=== PATIENT | female | born 1990 | race Two or more races ===

== ENCOUNTER 2017-11-07 15:01 | Inpatient (IN) | payer OTHER ==
[~2017-11-07] VITALS: Ht 157.5 cm; Wt 60.9 kg
[2017-11-07] MEDS: LACTATED RINGERS 1,000 ML IV SCH (02:45)
[2017-11-07] MEDS ORDERED: PREN1TAB69 PO (15:08)
[2017-11-07 15:18] VITALS: BP 129/61
[2017-11-07] MEDS ORDERED: OXYTOCIN 30U/ 0.9% NaCL 500ML 500 ML IV PRN (17:09)
[2017-11-07] MEDS ORDERED: D5%-LACTATED RINGERS 1,000 ML IV SCH (17:09)
[2017-11-07] MEDS ORDERED: OXYTOCIN 30U/ 0.9% NaCL 500ML 500 ML IV ONE (17:09)
[2017-11-07] MEDS ORDERED: MISOPROSTOL 200 MCG TABLET ONE (17:26)
[2017-11-07] MEDS ORDERED: LIDOCAINE/PF 1%, 30ML ONE (17:26)
[2017-11-07] MEDS ORDERED: OXYTOCIN 30U/ 0.9% NaCL 500ML 500 ML ONE (17:26)
[2017-11-07] MEDS ORDERED: NEWBORN KIT ONE (17:26)
[2017-11-07] MEDS ORDERED: CALCIUM CARBONATE 500 MG TAB.CHEW PO PRN (17:30)
[2017-11-07] MEDS ORDERED: ONDANSETRON 2MG/ML, 2ML IVPush PRN (17:30)
[2017-11-07] MEDS ORDERED: FENTANYL PF 100 MCG/2ML IVPush PRN (17:30)
[2017-11-07] MEDS ORDERED: FENTANYL PF 100 MCG/2ML IV PRN (17:30)
[2017-11-07 18:01] LABS: BASOPHILS # (AUTO) 0.08 x10^3/uL (0-0.1); BASOPHILS % (AUTO) 1 % (0-1); EOSINOPHILS # (AUTO) 0.19 x10^3/uL (0-0.4); EOSINOPHILS % (AUTO) 2 % (1-7); LYMPHOCYTES # (AUTO) 2.42 x10^3/uL (1-3.4); LYMPHOCYTES % (AUTO) 23 % (22-44); MD NO; MEAN CORPUSCULAR HEMOGLOBIN 30.5 pg (27.0-34.8); MEAN CORPUSCULAR HGB CONC 34.1 g/dL (32.4-35.8); MEAN CORPUSCULAR VOLUME 89.6 fL (80-100); MEAN PLATELET VOLUME 9.5 fL (7.4-10.4); MONOCYTES % (AUTO) 7 % (2-9); NEUTROPHILS # (AUTO) 7.22 x10^3/uL (1.8-6.8); NEUTROPHILS % (AUTO) 68 % (42-75); PLATELET COUNT 270 x10^3/uL (130-400); RED BLOOD COUNT 4.43 x10^6/uL (3.82-5.3); RED CELL DISTRIBUTION WIDTH 14.1 % (9.6-15.2)
[2017-11-08] MEDS ORDERED: FENTANYL PF 100 MCG/2ML ONE (02:25)
[2017-11-08] MEDS ORDERED: ONDANSETRON ODT 8 MG ONE (04:06)
[2017-11-08] MEDS ORDERED: ONDANSETRON ODT 8 MG PO ONE (04:30)
[2017-11-08] MEDS ORDERED: OXYTOCIN 30U/ 0.9% NaCL 500ML 500 ML ONE (04:48)
[2017-11-08] MEDS ORDERED: FENTANYL/BUPIV./NS/PF 250 ML EPIDCONT SCH ×2 (09:22→10:16)
[2017-11-08] MEDS: LACTATED RINGERS 1,000 ML IV SCH ×2 (09:44→11:12)
[2017-11-08] MEDS ORDERED: FENTANYL PF 500 MCG, BUPIVACAINE/PF 0.5%, 30ML 62.5 ML in SODIUM CHLORIDE 0.9% 177.5 ML EPIDCONT SCH (10:00)
[2017-11-08] MEDS ORDERED: LACTATED RINGERS 1,000 ML IV SCH (10:16)
[2017-11-08] MEDS ORDERED: BUPIVACAINE 0.25% ONE ×2 (10:18→10:19)
[2017-11-08] MEDS ORDERED: FENTANYL/BUPIV./NS/PF 250 ML EPIDCONT ONE (10:19)
[2017-11-08] MEDS ORDERED: NALOXONE 0.4 MG/ML, 1ML IVPush PRN (10:30)
[2017-11-08] MEDS ORDERED: LACTATED RINGERS 1,000 ML IVBOLUS PRN (10:30)
[2017-11-08] MEDS ORDERED: EPHEDRINE 50 MG/ML, 1ML IVPush PRN (10:30)
[2017-11-08] MEDS: OXYTOCIN 30U/ 0.9% NaCL 500ML 500 ML IV SCH (14:05)
[2017-11-08] MEDS ORDERED: ACETAMINOPHEN 325 MG TABLET PO PRN (14:30)
[2017-11-08] MEDS ORDERED: DOCUSATE 100 MG CAPSULE PO PRN (14:30)
[2017-11-08] MEDS ORDERED: IBUPROFEN 600 MG TABLET PO PRN (14:30)
[2017-11-08] MEDS ORDERED: MISOPROSTOL 200 MCG TABLET PR PRN (14:30)
[2017-11-08] MEDS ORDERED: METHYLERGONOVINE 0.2 MG/ML IM PRN (14:30)
[2017-11-08] MEDS ORDERED: HYDROcodone/APAP 5/325 TABLET PO PRN ×2 (14:30)
[2017-11-08] MEDS ORDERED: IBUPROFEN 600 MG TABLET ONE (15:02)
[2017-11-08 16:50] VITALS: BP 115/68
[2017-11-08 19:21] VITALS: BP 108/64
[2017-11-08 21:32] LABS: BASOPHILS # (AUTO) 0.03 x10^3/uL (0-0.1); BASOPHILS % (AUTO) 0 % (0-1); EOSINOPHILS # (AUTO) 0.04 x10^3/uL (0-0.4); EOSINOPHILS % (AUTO) 0 % (1-7); LYMPHOCYTES # (AUTO) 2.12 x10^3/uL (1-3.4); LYMPHOCYTES % (AUTO) 14 % (22-44); MD NO; MEAN CORPUSCULAR HEMOGLOBIN 30.5 pg (27.0-34.8); MEAN CORPUSCULAR HGB CONC 34.1 g/dL (32.4-35.8); MEAN CORPUSCULAR VOLUME 89.7 fL (80-100); MEAN PLATELET VOLUME 8.7 fL (7.4-10.4); MONOCYTES # (AUTO) 1.23 x10^3/uL (0.2-0.8); MONOCYTES % (AUTO) 8 % (2-9); NEUTROPHILS # (AUTO) 11.66 x10^3/uL (1.8-6.8); NEUTROPHILS % (AUTO) 77 % (42-75); PLATELET COUNT 233 x10^3/uL (130-400); RED BLOOD COUNT 3.53 x10^6/uL (3.82-5.3); RED CELL DISTRIBUTION WIDTH 13.3 % (9.6-15.2)
[2017-11-08 23:44] VITALS: BP 109/68
[2017-11-09] MEDS: OXYTOCIN 30U/ 0.9% NaCL 500ML 500 ML IV SCH ×2 (00:05→10:05)
[2017-11-09 05:17] VITALS: BP 106/67
[2017-11-09 07:28] VITALS: BP 94/53
[2017-11-09] MEDS ORDERED: PRENATAL VIT/IRON/FA 1 EACH TABLET PO SCH (09:00)
[2017-11-09] MEDS ORDERED: DOCU100C33 PO (15:24)
[2017-11-09] MEDS ORDERED: IBUP200T49 PO (15:26)
[2017-11-09 16:27] VITALS: BP 115/73
== END 2017-11-09 17:41 | disposition home or self-care (01) | DRG 807 ==
LOC: LDOP 15:01 → LDIP 17:09 → 2NW 11-08 16:45
PROVIDERS: ADMIT Obstetrics & Gynecology Maternal & Fetal Medicine; ATTEND Obstetrics & Gynecology Maternal & Fetal Medicine
PROC: 10E0XZZ Delivery of Products of Conception, External Approach (ICD-10-PCS; principal; 2017-11-08)
PROC: 0KQM0ZZ Repair Perineum Muscle, Open Approach (ICD-10-PCS; 2017-11-08)
PROC: 0UQMXZZ Repair Vulva, External Approach (ICD-10-PCS; 2017-11-08)
PROC: 3E0R3BZ Introduction of Anesthetic Agent into Spinal Canal, Percutaneous Approach (ICD-10-PCS; 2017-11-08)
PROC: 00HU33Z Insertion of Infusion Device into Spinal Canal, Percutaneous Approach (ICD-10-PCS; 2017-11-08)
DX: O76 Abnormality in fetal heart rate and rhythm complicating labor and delivery (principal); Z37.0 Single live birth; O70.1 Second degree perineal laceration during delivery; O71.82 Other specified trauma to perineum and vulva; Z3A.37 37 weeks gestation of pregnancy
CPT/HCPCS: 36415; J7121; 84112; 85025; 86850; 86900; 89060; G0378; J3490; Q0162; J2590; J3010; J7120; Q0114

== ENCOUNTER 2020-05-14 10:53 | Outpatient (CLI) | payer MEDICAID, OTHER ==
[~2020-05-14] VITALS: Ht 157.5 cm; Wt 58.6 kg
[~2020-05-14 10:53] MED LIST: DOCU100C33 PO; IBUP200T49 PO; PREN1TAB69 PO
[2020-05-14 11:06] VITALS: BP 111/55
== END 2020-05-14 23:59 | disposition home or self-care (01) ==
LOC: LDOP 10:53
PROVIDERS: ATTEND Obstetrics & Gynecology Maternal & Fetal Medicine
DX: O60.03 Preterm labor without delivery, third trimester (principal); Z3A.35 35 weeks gestation of pregnancy
CPT/HCPCS: 59025

== ENCOUNTER 2020-05-25 02:26 | Inpatient (IN) | payer MEDICAID ==
[~2020-05-25] VITALS: Ht 157.5 cm; Wt 59.0 kg
[2020-05-25] MEDS ORDERED: FENTANYL PF 100 MCG/2ML IV PRN (03:00)
[2020-05-25] MEDS ORDERED: TERBUTALINE 1 MG/ML, 1ML SQ PRN (03:00)
[2020-05-25] MEDS ORDERED: OXYTOCIN 30U/ 0.9% NaCL 500ML 500 ML IV ONE (03:00)
[2020-05-25] MEDS ORDERED: CALCIUM CARBONATE 500 MG TAB.CHEW PO PRN (03:00)
[2020-05-25] MEDS ORDERED: ALUMINUM/MAG/SIMETHICONE 30 ML UDC PO PRN (03:00)
[2020-05-25] MEDS ORDERED: ONDANSETRON 2MG/ML, 2ML IVPush PRN (03:00)
[2020-05-25] MEDS ORDERED: METOCLOPRAMIDE 5 MG/ML, 2ML IVPush PRN (03:00)
[2020-05-25] MEDS ORDERED: TERBUTALINE 1 MG/ML, 1ML IVPush PRN (03:00)
[2020-05-25] MEDS ORDERED: SODIUM CITRATE/CITRIC ACID 30 ML UDC PO PRN (03:00)
[2020-05-25] MEDS: LACTATED RINGERS 1,000 ML IV SCH ×2 (03:05→05:00)
[2020-05-25] MEDS ORDERED: NEWBORN KIT ONE (03:12)
[2020-05-25] MEDS ORDERED: MISOPROSTOL 200 MCG TABLET ONE (03:12)
[2020-05-25] MEDS ORDERED: OXYTOCIN 30U/ 0.9% NaCL 500ML 500 ML ONE (03:14)
[2020-05-25 03:16] LABS: BASOPHILS % (AUTO) 1 % (0-1); EOSINOPHILS % (AUTO) 2 % (1-7); LYMPHOCYTES % (AUTO) 22 % (22-44); MEAN CORPUSCULAR HEMOGLOBIN 28.9 pg (27.0-34.8); MEAN CORPUSCULAR HGB CONC 34.2 g/dL (32.4-35.8); MEAN PLATELET VOLUME 9.4 fL (7.4-10.4); MONOCYTES % (AUTO) 7 % (2-9); NEUTROPHILS % (AUTO) 68 % (42-75); PLATELET COUNT 261 x10^3/uL (130-400); RED BLOOD COUNT 3.72 x10^6/uL (3.82-5.3); RED CELL DISTRIBUTION WIDTH 13.7 % (9.6-15.2)
[2020-05-25 03:17] LABS: MD NO
[2020-05-25] MEDS ORDERED: PLEASE ENTER HEIGHT AND WEIGHT MC SCH (03:30)
[2020-05-25] MEDS ORDERED: D5%-LACTATED RINGERS 1,000 ML IV SCH (03:30)
[2020-05-25 03:33] VITALS: BP 127/75
[2020-05-25] MEDS: FENTANYL PF 100 MCG/2ML IVPush PRN ×2 (03:51→05:36)
[2020-05-25] MEDS ORDERED: OXYTOCIN 30U/ 0.9% NaCL 500ML 500 ML IV PRN (04:00)
[2020-05-25] MEDS ORDERED: FENTANYL/BUPIV./NS/PF 250 ML EPIDCONT ONE (06:04)
[2020-05-25] MEDS ORDERED: BUPIVACAINE 0.25% ONE (06:04)
[2020-05-25] MEDS ORDERED: LACTATED RINGERS 1,000 ML IV SCH (06:30)
[2020-05-25] MEDS ORDERED: NALOXONE 0.4 MG/ML, 1ML IVPush PRN (06:30)
[2020-05-25] MEDS ORDERED: EPHEDRINE 50 MG/ML, 1ML IVPush PRN (06:30)
[2020-05-25] MEDS ORDERED: LACTATED RINGERS 1,000 ML IVBOLUS PRN (06:30)
[2020-05-25] MEDS ORDERED: FENTANYL/BUPIV./NS/PF 250 ML EPIDCONT SCH (06:30)
[2020-05-25] MEDS ORDERED: SIMETHICONE 80 MG CHEW TAB PO PRN (11:00)
[2020-05-25] MEDS ORDERED: OXYcodone IR 5MG TABLET PO PRN ×2 (11:00)
[2020-05-25] MEDS ORDERED: METHYLERGONOVINE 0.2 MG/ML IM PRN (11:00)
[2020-05-25] MEDS ORDERED: ONDANSETRON 2MG/ML, 2ML IV PRN (11:00)
[2020-05-25] MEDS ORDERED: CARBOPROST TROMETHAMINE 250 MCG/ML, 1ML IM PRN (11:00)
[2020-05-25] MEDS ORDERED: MISOPROSTOL 200 MCG TABLET PR PRN (11:00)
[2020-05-25] MEDS ORDERED: OXYTOCIN 30U/ 0.9% NaCL 500ML 500 ML IV SCH (11:00)
[2020-05-25] MEDS ORDERED: ACETAMINOPHEN 325 MG TABLET PO PRN (11:00)
[2020-05-25 12:15] VITALS: BP 109/67
[2020-05-25 16:03] VITALS: BP 104/64
[2020-05-25 18:36] LABS: BASOPHILS % (AUTO) 1 % (0-1); EOSINOPHILS % (AUTO) 1 % (1-7); LYMPHOCYTES % (AUTO) 16 % (22-44); MEAN CORPUSCULAR HEMOGLOBIN 28.9 pg (27.0-34.8); MEAN CORPUSCULAR HGB CONC 33.8 g/dL (32.4-35.8); MEAN PLATELET VOLUME 9.7 fL (7.4-10.4); MONOCYTES % (AUTO) 7 % (2-9); NEUTROPHILS % (AUTO) 76 % (42-75); PLATELET COUNT 243 x10^3/uL (130-400); RED BLOOD COUNT 3.63 x10^6/uL (3.82-5.3); RED CELL DISTRIBUTION WIDTH 13.3 % (9.6-15.2)
[2020-05-25 18:44] LABS: MD NO
[2020-05-25 20:15] VITALS: BP 116/71
[2020-05-25] MEDS: DOCUSATE 100 MG CAPSULE PO PRN (20:34)
[2020-05-25] MEDS: IBUPROFEN 600 MG TABLET PO PRN (20:34)
[2020-05-26 00:45] VITALS: BP 113/71
[2020-05-26 05:55] VITALS: BP 109/66
[2020-05-26 08:20] VITALS: BP 108/69
[2020-05-26] MEDS: IBUPROFEN 600 MG TABLET PO PRN ×3 (08:54→23:20)
[2020-05-26] MEDS: DOCUSATE 100 MG CAPSULE PO PRN (08:54)
[2020-05-26] MEDS: PRENATAL VIT/IRON/FA 1 EACH TABLET PO SCH (08:54)
[2020-05-26 19:30] VITALS: BP 136/81
[2020-05-27] MEDS ORDERED: IBUP-1222 PO (07:39)
[2020-05-27] MEDS ORDERED: DOCU-131 PO (07:40)
[2020-05-27] MEDS: DOCUSATE 100 MG CAPSULE PO PRN (09:35)
[2020-05-27] MEDS: PRENATAL VIT/IRON/FA 1 EACH TABLET PO SCH (09:35)
[2020-05-27 09:45] VITALS: BP 109/69
== END 2020-05-27 11:45 | disposition home or self-care (01) | DRG 807 ==
LOC: LDOP 02:26 → LDIP 02:58 → 2NW 12:18
PROVIDERS: ADMIT Obstetrics & Gynecology Maternal & Fetal Medicine; ATTEND Obstetrics & Gynecology Maternal & Fetal Medicine
PROC: 10E0XZZ Delivery of Products of Conception, External Approach (ICD-10-PCS; principal; 2020-05-25)
PROC: 3E0R3BZ Introduction of Anesthetic Agent into Spinal Canal, Percutaneous Approach (ICD-10-PCS; 2020-05-25)
PROC: 00HU33Z Insertion of Infusion Device into Spinal Canal, Percutaneous Approach (ICD-10-PCS; 2020-05-25)
DX: O36.5930 Maternal care for other known or suspected poor fetal growth, third trimester, not applicable or unspecified (principal); Z37.0 Single live birth; Z3A.36 36 weeks gestation of pregnancy
CPT/HCPCS: 36415; 85025; 86592; 86850; 86900; 87635; G0378; J3010; J2590; J7120; J7121